=== PATIENT | male | born 1950 | race Caucasian/White ===

== ENCOUNTER 2021-04-27 19:09 | Emergency (ER) | payer MEDICARE, MEDICAID ==
[~2021-04-27] VITALS: Ht 177.8 cm; Wt 77.1 kg
[~2021-04-27 19:09] MED LIST: FLUO10CA13 PO; PALI1.5T HOMEINJ
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
[2021-04-27] MEDS ORDERED: NEOSPORIN OINT. PKT 1 PACKET ONE (20:17)
[2021-04-27] MEDS ORDERED: DIPH,PERTUSS(ACELL),TET VAC/PF 0.5 ML IM-VACC ONE ×2 (20:21→20:30)
[2021-04-27 20:29] VITALS: BP 114/72
[2021-04-27] MEDS ORDERED: BACITRACIN ZINC OINT 500U/GM, 0.9 GM ONE (20:48)
== END 2021-04-27 22:48 | disposition home or self-care (01) ==
LOC: ED 19:50
DX: S01.01XA Laceration without foreign body of scalp, initial encounter (principal); F10.120 Alcohol abuse with intoxication, uncomplicated; Z72.9 Problem related to lifestyle, unspecified; F17.200 Nicotine dependence, unspecified, uncomplicated; W01.0XXA Fall on same level from slipping, tripping and stumbling without subsequent striking against object, initial encounter; Y93.89 Activity, other specified; Y92.89 Other specified places as the place of occurrence of the external cause; Y99.8 Other external cause status; Y90.0 Blood alcohol level of less than 20 mg/100 ml
CPT/HCPCS: 12002; 70450; 72125; 90471; 90715

== ENCOUNTER 2021-04-28 02:39 | Emergency (ER) | payer MEDICARE, MEDICAID ==
[~2021-04-28] VITALS: Ht 177.8 cm; Wt 82.0 kg
--- NOTE | 2021-04-28 02:49 | NUR ---
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
--- NOTE | 2021-04-28 03:34 | NUR ---
PT SLEEPING IN BED. EYES CLOSED. BREATHING EVEN AND UNLABORED. NADN. BED IN LOW POSITION, BLANKETS GIVEN TO BLANKET. RAILS ENGAGED. CALL LIGHT ON LAP. WCTM. PLAN OF CARE IS TO METABOLISE TO FREEDOME. PT ODOR LIKE ETOH WELL BREATH.
--- NOTE | 2021-04-28 03:37 | NUR ---
PT APPEARS TO WANT TO ONLY SLEEP AND NOT ANSWER ANY QUESTIONS.
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
[2021-04-28] MEDS ORDERED: BACITRACIN ZINC OINT 500U/GM, 0.9 GM ONE (03:50)
--- NOTE | 2021-04-28 05:36 | NUR ---
Patient is SLEEPING comfortably in bed. EYES CLOSED. Bed in lowest, rails engaged, call light on lap. Vital Signs within normal limits. WCTM. BREATHING EVEN AND UNLABORED. ISRA
[2021-04-28 06:27] VITALS: BP 123/54
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
--- NOTE | 2021-04-28 07:13 | NUR ---
PT BACK TO BED, RESTING, BED RAILS UP FOR SAFETY. WILL ATTEMPT DC AT LATER TIME D/T UNSTEADY GAIT.
--- NOTE | 2021-04-28 07:56 | NUR ---
PT DEMONSTRATING STEADY GAIT, WALKED TO DC DESK.
== END 2021-04-28 07:57 | disposition home or self-care (01) ==
LOC: ED 05:33
DX: F10.120 Alcohol abuse with intoxication, uncomplicated (principal); F17.210 Nicotine dependence, cigarettes, uncomplicated; Z72.9 Problem related to lifestyle, unspecified; M19.90 Unspecified osteoarthritis, unspecified site; Y90.0 Blood alcohol level of less than 20 mg/100 ml
CPT/HCPCS: 99406

== ENCOUNTER 2021-05-05 12:12 | Emergency (ER) | payer MEDICARE, MEDICAID ==
[~2021-05-05] VITALS: Ht 172.7 cm; Wt 75.1 kg
[2021-05-05 12:43] VITALS: BP 105/54
== END 2021-05-05 13:35 | disposition home or self-care (01) ==
LOC: ED 13:29
DX: S01.91XD Laceration without foreign body of unspecified part of head, subsequent encounter (principal); X58.XXXD Exposure to other specified factors, subsequent encounter
CPT/HCPCS: 99281